=== PATIENT | female | born 1990 | race Two or more races ===

== ENCOUNTER 2017-07-15 21:08 | Emergency (ER) | payer OTHER ==
[~2017-07-15] VITALS: Ht 160 cm; Wt 48.3 kg
[2017-07-15] MEDS ORDERED: METOCLOPRAMIDE 5 MG/ML, 2ML IVPush ONE (22:00)
[2017-07-15] MEDS ORDERED: SODIUM CHLORIDE 0.9% 1,000ML IVBOLUS ONE (22:00)
[2017-07-15] MEDS ORDERED: KETOROLAC 30 MG/1 ML IVPush ONE (22:00)
[2017-07-15] MEDS ORDERED: DIPHENHYDRAMINE 50 MG/ML, 1ML IVPush ONE (22:00)
[2017-07-15] MEDS ORDERED: SODIUM CHLORIDE FLUSH 10ML SYR IVF ONE (22:00)
[2017-07-15] MEDS ORDERED: KETOROLAC 30 MG/1 ML ONE (22:19)
[2017-07-15] MEDS ORDERED: METOCLOPRAMIDE 5 MG/ML, 2ML ONE (22:19)
[2017-07-15] MEDS ORDERED: DIPHENHYDRAMINE 50 MG/ML, 1ML ONE (22:19)
[2017-07-15 22:29] LABS: HEMATOCRIT 34.9 % (34.6-47.8); HEMOGLOBIN 11.7 g/dL (11.7-16.4); WHITE BLOOD COUNT 6.9 x10^3/uL (3.4-10)
[2017-07-15 22:39] LABS: BLOOD UREA NITROGEN 11 mg/dL (7-18)
[2017-07-15 23:20] VITALS: BP 100/60
== END 2017-07-15 23:59 | disposition home or self-care (01) ==
LOC: ED 22:33
DX: R51 Headache (principal)
CPT/HCPCS: 36415; 70450; 80048; 82040; 84703; 85025; 96361; 96374; 96375; 99285; J1200; J1885; J2765; J7030